=== PATIENT | female | born 1970 ===

== ENCOUNTER 2017-01-11 09:38 | Day surgery (SDC) | payer OTHER ==
[2017-01-06 10:40] VITALS: BMI 25.1
[2017-01-11 10:15] VITALS: RESP 18
[2017-01-11] MEDS ORDERED: Bupivacaine 0.5% Inj(30mL) ONE (10:39)
[2017-01-11] MEDS ORDERED: Midazolam 2 MG/2 ML VIAL ONE (10:39)
[2017-01-11] MEDS ORDERED: Lidocaine 1% Inj (20ml) ONE (10:39)
[2017-01-11] MEDS ORDERED: Propofol 10 mg/ml Inj (20 ML) ONE (10:39)
[2017-01-11] MEDS ORDERED: Lactated Ringer's 1,000 ML IV ONE (10:50)
[2017-01-11] MEDS ORDERED: Bupivacaine 0.5% 50 ML IJ ONE (11:05)
--- NOTE | 2017-01-11 11:34 | PCM.SURG1 ---
Surgeon's Initial Post Op Note - Surgeon's Notes Surgeon: Dr. Castañeda [employer] Operator: Dr. Rodriguez PGY2; Dr. Fleming DPM Type of Anesthesia: General LMA Anesthesia Administered By: Ned Pre-Operative Diagnosis: Left Breast Mass Operative Findings: same Post-Operative Diagnosis: same Operation Performed: Excision Left breast mass Specimen/Specimens Removed: left breast mass Estimated Blood Loss: EBL {In ML}: 5 Blood Products Given: N/A Drains Used: No Drains Post-Op Condition: Good Date of Surgery/Procedure: 01/11/17 Time of Surgery/Procedure: 11:35
[2017-01-11] MEDS ORDERED: Lactated Ringer's 1,000 ML IV SCH (11:38)
[2017-01-11] MEDS ORDERED: DiphenhydrAMINE 50 mg/ml Inj IVP PRN (11:38)
[2017-01-11] MEDS ORDERED: HYDROmorphone 0.5 mg/0.5 ml ISec IVP PRN (11:38)
[2017-01-11 12:52] VITALS: O2SAT 99
[2017-01-11 13:43] VITALS: BP 112/82; PULSE 69; TEMP 97.7
--- NOTE | 2017-01-11 19:11 | OP ---
PROCEDURE DATE: 01/11/2017 SURGEON: Dr. Castañeda. FOLDER OPERATOR: Dr. Rodriguez. ANESTHESIA: General, Dr. Alejandro. PREOPERATIVE DIAGNOSIS: Left breast mass. POSTOPERATIVE DIAGNOSIS: Left breast mass. PROCEDURE: Lumpectomy of left breast. DESCRIPTION OF OPERATION: With the patient in the supine position under adequate general anesthesia, the left breast was prepped and draped in the usual sterile manner. 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 A transverse incision was made over the area of the mass and superior and inferior s kin flaps were raised beyond the margins of the mass. The mass was noted to present slightly into th e subcutaneous tissue on the superficial aspect. On all other aspects the surrounding breast tissue was excised down to the chest wall and the mass was removed with a margin of normal breast tissue. T he operative site was examined for hemostasis and closure was performed with running subcuticular sut ure of 4-0 Monocryl and Steri-Strips. Dry sterile dressings were applied. The patient tolerated the procedure well and transferred to the recovery room in stable condition. Estimated blood loss for t he procedure was 5 mL. Sharona Castañeda MD cc: [id number] TT: 01/11/2017 19:11:32 morris
== END 2017-01-11 14:05 | disposition home or self-care (01) ==
LOC: H.OPSURG 09:38
PROVIDERS: ATTEND Specialist
DX: N63 Unspecified lump in breast (principal); K21.9 Gastro-esophageal reflux disease without esophagitis; E03.9 Hypothyroidism, unspecified